=== PATIENT | female | born 1990 | race Caucasian/White ===

== ENCOUNTER 2016-05-20 13:25 | Emergency (ER) | payer MEDICAID ==
[~2016-05-20] VITALS: Ht 152.4 cm; Wt 71.4 kg
[~2016-05-20 13:25] MED LIST: ACET1TAB12 PO; AMOX500T2 PO; LACT1CAP73; MAGNESIUM SUPPLEMENT; [UNRECOGNIZED DRUG - OTHER] PO
--- OUTSIDE RECORDS SUMMARY | 2016-05-20 13:30 | XMS REPORT | Continuity of Care Document ---
Author Author [facility] Organization [facility] Address Unknown Phone Unavailable Care Team Providers Care Payroll Administrator Name Role Phone BERKLEY KATZ DO Primary Care Physician [phone] Insurance Providers Guarantor Cristal Blankenship Address [address] [place] [address] Email DENIED/NO TO PT [place] Payer [facility] Community Plan Policy Number [id number] Subscriber's Name Anthony Blankenshipyla Relationship 18 Self Effective Date 16 Expiration Date 16 Chief Complaint and Reason for Visit Chief Complaint Throat Pain/Injury Reason for Visit [id number] Problems Active Problems Medical Problem Onset Date Status Ovarian cyst rupture Unknown PCOS (polycystic ovarian syndrome) Unknown Strep pharyngitis Unknown Acute UTI (urinary tract infection) Unknown Acute Past Problems Medical Problem Onset Date Abdominal pain Unknown Constipation Unknown Drug-seeking behavior Unknown Medications Current Home Medications Medication Dose Units Route Directions Days Qty Instructions Start Date Acetaminophen With Codeine (Tylenol With Codeine #3 Tablet) 300-30 Tablet 1 Tab Oral Every 4 Hours as needed for Pain Take 1 tablet, by mouth, every 4 hours as needed for Pain 01/12/16 Amoxicillin 500 Mg Tablet 1,000 Mg Oral Daily 10 Days 20 Tablet 02/06 Lactobacillus Combination No.4 (Probiotic) 1 Each Capsule 11/23/15 Magnesium Supplement 11/23/15 Plexis Supplement 1 Tab Oral Daily 03/14/15 Past Home Medications Medication Directions Ordered Status Hydrocodone/Acetaminophen (Hornbeck 5-325 Tablet) 1 Each Tablet, 1-2 Tab Oral Every 6 Hours as needed for Pain 03/14/15 Discontinued B-Pfsoiha-Qst Estr/Ethin Estra (Camrese Lo Tablet) 1 Each Tbdspk.3mo, 1 Tab Oral Daily 03/14/15 Discontinued Ondansetron (Zofran Odt) 4 Mg Tab.rapdis, 4 Mg Oral Q6h/0300,0900,1500,2100 03/14/15 Discontinued Social History Social History Problem Response Recorded Date/Time Onset Date Status Hx Substance Use No 01/12/2016 11:38pm Not Applicable Not Applicable Hx Alcohol Use No 01/12/2016 11:38pm Not Applicable Not Applicable Tobacco Usage none 03/14/2015 12:13pm Not Applicable Not Applicable Hospital Discharge Instructions No hospital discharge instructions. Plan of Care Discharge Date 02/07/16 12:29pm Disposition 01 DISCHARGED HOME, SELF-CARE Condition at Discharge Stable Instructions/Education Provided Strep Throat Prescriptions See Medication Section Referrals BERKLEY KATZ DO Address: [address] [address] Functional Status No functional status results. Allergies, Adverse Reactions, Alerts Allergen Type Severity Reaction Status Last Updated No Known Drug Allergies Allergy Unknown Active 01/12/16 Immunizations Query Response on File Recorded Date/Time Hx Influenza Vaccination Y fall 200703/02/09 9:21am Hx Pneumococcal Vaccination No 03/02/09 9:21am Hx Influenza Vaccination Y fall 200703/02/09 9:21am Influenza Vaccine Hx OCT 2014 02/07/16 12:05pm Vital Signs Acute Vital Signs Vital Response Date/Time Temperature (Fahrenheit) 98.7 deg F (96.8 - 99.1) 02/07/2016 12:07pm Temperature (Calculated Celsius) 37.58557 degrees C (36.0 - 37.3) 02/07/2016 12:07pm Pulse Rate (adult) 79 bpm (60 - 100) 02/07/2016 12:07pm Respiratory Rate 20 breaths/min (10 - 20) 02/07/2016 12:07pm O2 Sat by Pulse Oximetry 96 % (90 - 100) 02/07/2016 12:07pm Blood Pressure 105/68 mm Hg 02/07/2016 12:07pm Height (Feet) 5 feet 01/12/2016 10:10pm Height (Inches) 62.00 inches 02/07/2016 12:07pm Weight (Kilograms) 74.500 kg 02/07/2016 12:07pm Body Mass Index (BMI) 30.0 02/07/2016 12:07pm Results Laboratory Results Test Name Result Units Flags Reference Collection Date/Time Result Date/ Time Comments Urine WBC 5-10 /HPF H 0-5 11/23/2015 10:38pm 11/23/2015 10:57pm Urine RBC 0-1 /HPF 0-3 11/23/2015 10:38pm 11/23/2015 10:57pm Urine Squamous Epithelial Cells 10-20 11/23/2015 10:38pm 2015 10:57pm Urine Bacteria 1+ H NEGATIVE 11/23/2015 10:38pm 11/23/2015 10:57pm Urine Amorphous Phosphates FEW 11/23/2015 10:38pm 11/23/2015 10: 57pm Urine Mucus PRESENT 11/23/2015 10:38pm 11/23/2015 10:57pm Urine Culture Indicated CULT NOT INDICATED 11/23/2015 10:38pm 11/22 10:57pm White Blood Count 9.3 T/MM3 4.5-11.0 01/12/2016 11:26pm 01/12/2016 11: 34pm Red Blood Count 4.68 M/MM3 4.00-5.20 01/12/2016 11:26pm 01/12/2016 11: 34pm Hemoglobin 14.7 GM/DL 12-16 01/12/2016 11:26pm 01/12/2016 11:34pm Hematocrit 41.3 % 36-46 01/12/2016 11:26pm 01/12/2016 11:34pm Mean Corpuscular Volume 88.2 UM3 80-100 01/12/2016 11:26pm 01/12/2016 11:34pm Mean Corpuscular Hemoglobin 31.4 UUG 26-34 01/12/2016 11:26pm 2015 11:34pm Mean Corpuscular Hemoglobin Concent 35.6 GM/DL 31-37 01/12/2016 11:26pm 01/12/2016 11:34pm RDW Standard Deviation 41.1 FL 36.9-50.2 01/12/2016 11:26pm 01/12/2016 11:34pm Platelet Count 244 T/MM3 130-400 01/12/2016 11:26pm 01/12/2016 11:34pm Mean Platelet Volume 9.9 UM3 9.4-12.4 01/12/2016 11:pm 01/12/2016 11: 34pm Neutrophils (%) (Auto) 82.4 % H 33-66 01/12/2016 11:pm 01/12/2016 11: 34pm Lymphocytes (%) (Auto) 10.6 % L 23-45 01/12/2016 11:pm 01/12/2016 11: 34pm Monocytes (%) (Auto) 5.9 % 0-9.0 01/12/2016 11:pm 01/12/2016 11:34pm Eosinophils (%) (Auto) 0.9 % 0-4 01/12/2016 11:pm 01/12/2016 11:34pm Basophils (%) (Auto) 0.1 % 0-2 01/12/2016 11:pm 01/12/2016 11:34pm Immature Granulocyte % (Auto) 0.1 % 0.0-0.5 01/12/2016 11:pm 2015 11:34pm Absolute Neutrophils (auto) 7.7 T/MM3 1.8-7.7 01/12/2016 11:pm 2015 11:34pm Absolute Lymphocytes (auto) 1.0 T/MM3 1-4.8 01/12/2016 11:pm 2015 11:34pm Absolute Monocytes (auto) 0.6 T/MM3 0-0.8 01/12/2016 11:pm 2015 11:34pm Absolute Eosinophils (auto) 0.1 T/MM3 0-0.5 01/12/2016 11:pm 2015 11:34pm Absolute Basophils (auto) 0.0 T/MM3 0-0.2 01/12/2016 11:pm 2015 11:34pm Absolute Immature Granulocyte (auto 0.01 T/MM3 0.00-0.03 01/12/2016 11: pm 01/12/2016 11:34pm Icterus Index < 2 0-7 01/12/2016 11:pm 01/12/2016 11:46pm Chemistry Specimen Hemolysis < 15 0-25 01/12/2016 11:pm 01/12/2016 11:46pm 0-25: Specimen Exhibited No Hemolysis. Turbidity < 20 0-20 01/12/2016 11:26pm 01/12/2016 11:46pm Sodium Level 140 MEQ/L 134-144 01/12/2016 11:26pm 01/12/2016 11:46pm Potassium Level 4.0 MEQ/L 3.6-5 01/12/2016 11:26pm 01/12/2016 11:46pm Chloride Level 105 MEQ/L 98-107 01/12/2016 11:26pm 01/12/2016 11:46pm Carbon Dioxide Level 22 MEQ/L 22-30 01/12/2016 11:26pm 01/12/2016 11: 46pm Anion Gap 13 MEQ/L 5-15 01/12/2016 11:pm 01/12/2016 11:46pm Blood Urea Nitrogen 15.0 MG/DL 7-17 01/12/2016 11:26pm 01/12/2016 11: 46pm Creatinine 0.7 MG/DL 0.7-1.2 01/12/2016 11:pm 01/12/2016 11:46pm BUN/Creatinine Ratio 21 RATIO 6-26 01/12/2016 11:26pm 01/12/2016 11: 46pm Glomerular Filtration Rate Calc 102 01/12/2016 11:26pm 01/12/2016 11:46pm Glucose Level 99 MG/DL 65-110 01/12/2016 11:pm 01/12/2016 11:46pm Calculated Osmolality 270 MOSM/KG 261-280 01/12/2016 11:26pm 2015 11:46pm Calcium Level 8.9 MG/DL 8.4-10.2 01/12/2016 11:26pm 01/12/2016 11:46pm Total Bilirubin 0.60 MG/DL 0.20-1.30 01/12/2016 11:26pm 01/12/2016 11: 46pm Alkaline Phosphatase 63 U/L 38-126 01/12/2016 11:26pm 01/12/2016 11: 46pm Total Protein 7.2 G/DL 6.3-8.2 01/12/2016 11:26pm 01/12/2016 11:46pm Albumin 4.2 G/DL 3.5-5.0 01/12/2016 11:26pm 01/12/2016 11:46pm Globulin 3.0 G/DL 2.4-3.6 01/12/2016 11:26pm 01/12/2016 11:46pm Albumin/Globulin Ratio 1.4 RATIO 1.1-2.2 01/12/2016 11:26pm 01/12/2016 11:46pm Aspartate Amino Transf (AST/SGOT) 21 U/L 14-36 01/12/2016 11:26pm 01/11 11:46pm Alanine Aminotransferase (ALT/SGPT) 34 U/L 9-52 01/12/2016 11:26pm 02/2015 11:46pm Urine Collection Type VOIDED-NOT CC-MIDSTR 01/12/2016 11:26pm 01/11 11:34pm Urine Color YELLOW YELLOW 01/12/2016 11:26pm 01/12/2016 11:34pm Urine Turbidity CLEAR CLEAR 01/12/2016 11:26pm 01/12/2016 11:34pm Urine Specific [place]cam[place] 1.025 1.015-1.025 01/12/2016 11:26pm 2015 11:34pm Urine pH 6.0 5.0-8.0 01/12/2016 11:26pm 01/12/2016 11:34pm Urine Leukocyte Esterase NEGATIVE NEGATIVE 01/12/2016 11:26pm 2015 11:34pm Urine Nitrite NEGATIVE NEGATIVE 01/12/2016 11:26pm 01/12/2016 11: 34pm Urine Protein NEGATIVE NEGATIVE 01/12/2016 11:26pm 01/12/2016 11: 34pm Urine Glucose (UA) NEGATIVE NEGATIVE 01/12/2016 11:26pm 01/12/2016 11 :34pm Urine Ketones TRACE A NEGATIVE 01/12/2016 11:26pm 01/12/2016 11:34pm Urine Urobilinogen 0.2 EU/DL NORMAL 01/12/2016 11:26pm 01/12/2016 11: 34pm Urine Bilirubin NEGATIVE NEGATIVE 01/12/2016 11:26pm 01/12/2016 11: 34pm Urine Blood NEGATIVE NEGATIVE 01/12/2016 11:26pm 01/12/2016 11:34pm Urinalysis Comment MICROSCOPIC NOT IND. 01/12/2016 11:26pm 2015 11:34pm Procedures Procedure Status Date Provider(s) CT ABD & PELV W/CONTRAST Completed 11/23/15 METABOLIC PANEL TOTAL CA Completed 11/23/15 URINALYSIS AUTO W/SCOPE Completed 11/23/15 URINE TEST Completed 11/23/15 COMPLETE CBC W/AUTO DIFF WBC Completed 11/23/15 HYDRATE IV INFUSION ADD-ON Completed 11/23/15 THER/PROPH/DIAG INJ IV PUSH Completed 11/23/15 TX/PRO/DX INJ NEW DRUG ADDON Completed 11/23/15 TX/PRO/DX INJ NEW DRUG ADDON Completed 11/23/15 EMERGENCY DEPT VISIT Completed 11/23/15 948272"INJECTION, KETOROLAC TROMETHAMINE, PER 15 MG" Completed 11/23/15395850"INJECTION, ONDANSETRON HYDROCHLORIDE, PER 1 MG" Completed 11/23/15373428"INFUSION, NORMAL SALINE SOLUTION , 1000 CC" Completed 11/23/15653673"INFUSION, NORMAL SALINE SOLUTION , 250 CC" Completed 11/23/15378508"LOW OSMOLAR CONTRAST MATERIAL, 300-399 MG/ML IODINE C Completed X-RAY EXAM OF ABDOMEN Completed 01/12/16 COMPREHEN METABOLIC PANEL Completed 01/12/16 URINALYSIS AUTO W/O SCOPE Completed 01/12/16 URINE TEST Completed 01/12/16 COMPLETE CBC W/AUTO DIFF WBC Completed 01/12/16 THER/PROPH/DIAG INJ IV PUSH Completed 01/12/16 TX/PRO/DX INJ NEW DRUG ADDON Completed 01/12/16 TX/PRO/DX INJ NEW DRUG ADDON Completed 01/12/16 EMERGENCY DEPT VISIT Completed 01/12/16 386381"INJECTION, PANTOPRAZOLE SODIUM, PER VIAL" Completed 01/12/16 141470"INJECTION, ONDANSETRON HYDROCHLORIDE, PER 1 MG" Completed 01/12/16 722208"INJECTION, FENTANYL CITRATE, 0.1 MG" Completed 01/12/16 Encounters Encounter Location Arrival/Admit Date Discharge/Depart Date Attending Provider Registered Emergency Room [facility] 02/07/16 11:32am EMILIANO COSTELLO APRN Departed Emergency Room [facility] 01/12/16 10:03pm 01/13/16 2: 12am JUNERANDALL DO Departed Emergency Room [facility] 11/23/15 9:34pm 11/24/15 12: 07am BRUNO EDWARDS MD Recent Diagnosis
[2016-05-20 13:34] VITALS: Ht 152.4 cm; Wt 71.4 kg
[2016-05-20] MEDS ORDERED: PLEXUS SUPPLEMENTS PO (13:54)
[2016-05-20 14:04] LABS: BLOOD, URINE NEGATIVE (NEGATIVE); COLOR,URINE YELLOW (YELLOW); LEUKOCYTE ESTERASE ,URINE NEGATIVE (NEGATIVE); NITRITE,URINE NEGATIVE (NEGATIVE); UROBILINOGEN,URINE 0.2 EU/DL (NORMAL)
[2016-05-20 14:14] LABS: BASOPHILS % (AUTO) 0.2 % (0-2); EOSINOPHILS # (AUTO) 0.1 T/MM3 (0-0.5); EOSINOPHILS % (AUTO) 1.6 % (0-4); HCT - HEMATOCRIT 40.2 % (36-46); HGB - HEMOGLOBIN 13.9 GM/DL (12-16); LYMPHOCYTES # (AUTO) 2.4 T/MM3 (1-4.8); LYMPHOCYTES % (AUTO) 29.3 % (23-45); MEAN CORPUSCULAR HGB 30.8 UUG (26-34); MEAN CORPUSCULAR HGB CONC(MCHC 34.6 GM/DL (31-37); MEAN CORPUSCULAR VOLUME 88.9 UM3 (80-100); MEAN PLATELET VOLUME 9.9 UM3 (9.4-12.4); MONOCYTES # (AUTO) 0.5 T/MM3 (0-0.8); MONOCYTES % (AUTO) 6.7 % (0-9.0); NEUTROPHILS % (AUTO) 62.2 % (33-66); RED BLOOD COUNT 4.52 M/MM3 (4.00-5.20)
[2016-05-20] MEDS ORDERED: MORPHINE SULFATE 4 MG SYRINGE IV ONE (14:15)
[2016-05-20] MEDS ORDERED: NORMAL SALINE 1,000 ML IV ONE (14:15)
[2016-05-20] MEDS ORDERED: ONDANSETRON 4mg/2ml INJECTION IV ONE (14:15)
[2016-05-20 14:22] LABS: ALBUMIN 4.3 G/DL (3.5-5.0); ALBUMIN/GLOBULIN RATIO 1.3 RATIO (1.1-2.2); ALKALINE PHOSPHATASE 65 U/L (38-126); ALT (SGPT) 34 U/L (9-52); ANION GAP 16 MEQ/L (5-15); AST (SGOT) 24 U/L (14-36); BUN/CREATININE RATIO 16 RATIO (6-26); CALCIUM 9.5 MG/DL (8.4-10.2); CHLORIDE 106 MEQ/L (98-107); CO2 - CARBON DIOXIDE 24 MEQ/L (22-30); CREATININE 0.8 MG/DL (0.7-1.2); GLOMERULAR FILTRATION RATE 87; GLUCOSE 87 MG/DL (65-110); LIPASE 136 U/L (23-300); POTASSIUM 4.1 MEQ/L (3.6-5); SODIUM 146 MEQ/L (134-144); TOTAL PROTEIN 7.6 G/DL (6.3-8.2)
--- NOTE | 2016-05-20 14:45 | NUR ---
MEDICATIONS IVF INFUSING ORDERED. ZOFRAN 4MG IVP AND MORPHINE 4MG IVP ADMINISTERED
--- NOTE | 2016-05-20 14:56 | NUR ---
DR/PELVIC DR MCKEON AT BEDSIDE TO PERFORM PELVIC EXAM. THIS RN AT BEDSIDE FOR ASSISTANCE.
--- NOTE | 2016-05-20 15:09 | NUR ---
CT PT TO CT VIA RNEY.
--- NOTE | 2016-05-20 15:19 | NUR ---
CT PT RETURNED.
--- NOTE | 2016-05-20 16:05 | NUR ---
ULTRASOUND PT TO ULTRASOUND VIA WC.
[2016-05-20] MEDS ORDERED: HYDROMORPHONE 2mg/ml INJECTION IV ONE (16:15)
[2016-05-20] MEDS ORDERED: ONDA4TAB7 PO (17:02)
[2016-05-20] MEDS ORDERED: HYDR-4246 PO (17:02)
--- NOTE | 2016-05-20 17:03 | ERPDOC ---
Departure Disposition Decision Date: May 20, 2016 Disposition Decision Time: 17:00 Disposition: 01 DISCHARGED HOME, SELF-CARE Impression Impression Impression: Primary Impression: Pelvic pain Severity: Mild Condition: Improved Seen By: Physician only Referrals: BERKLEY KATZ DO (Family) 2 Days Patient Instructions: Pelvic Pain in Women (ED) Problems/Meds/Labs Reviewed?: Yes Medications reviewed and manag: Yes Follow up care ordered?: Yes Mental Status: Alert, Oriented Scripts Hydrocodone/Acetaminophen (Senatobia 5-325 Tablet) 5-325 Tablet 1 TAB PO Q4HR Y for PAIN for 2 Days, #12 TAB 0 Refills Prov: ELE MCKEON DO 05/20/16 Ondansetron (Zofran Odt) 4 Mg Tab.rapdis 4 MG PO Q4HR Y for NAUSEA &/OR VOMITING, #4 TAB 0 Refills Prov: ELE MCKEON DO 05/20/16 HPI - General Medical General Chief Complaint: Abdominal Pain Stated Complaint: L FLANK PAIN, HX OF ENDOMETRIOSIS AND PCOS Time Seen by Provider: 13:41 Source: patient Exam Limitations: no limitations HPI - General Medical Initial Comments 26-year-old female presents to emergency department earlier today with a chief complaint of left lower quadrant abdominal discomfort. Patient noted onset of symptoms earlier today prior to arrival to the emergency department. She denies any trauma or injury. No other complaints or associated symptoms. Pain is sharp. No radiation of pain. Pain is moderate in nature. She does not note anything that makes her pain any better or any worse. Patient has a history of similar symptoms in the past with endometriosis. She was at home when her symptoms began. Symptoms have been persistent in nature since onset. They've had a gradual progression. Patient denies any trauma, travel, poorly prepared food, or recent antibiotic use. She denies any vaginal symptoms or concern for STD. Occurred At: home Onset: Gradual Allergies: Coded Allergies: ketorolac (Verified Adverse Reaction, Unknown, PANIC ATTACK, 05/20/16) Past History Patient Surgical History Exploratory lap surgery 2 Loraine teeth removal Past Medical History Female: endometriosis, miscarriage Neurological: seizures Surgical History General: exploratory laparotomy Family History Family History: Negative Family PMH: FOUND: other Vaccines Hx Influenza Vaccination: Yes (FALL 2007) Hx Pneumococcal Vaccination: No Social History Smoking Status: Former smoker # of Years: 2 Second Hand Exposure: No Substance Use Type: does not use Alcohol Intake: none, occasionally Sexuality: male partner Review of Systems Constitutional Constitutional: DENIES: chills, fever Eyes General: DENIES: erythema, exudate Lids/Accessories: DENIES: erythema, swelling Vision: DENIES: acuity, blurring ENMT Ears: DENIES: drainage, erythema Hearing: DENIES: hearing loss Balance: DENIES: ataxia, falling to one side Sinuses: DENIES: congestion, pain Nose: DENIES: nosebleeds, pain Mouth/Throat: DENIES: painful swallowing, sore throat Teeth: DENIES: pain Jaw: DENIES: pain Cardiovascular Cardiac: DENIES: chest pain, dyspnea on exertion Rhythm/Rate: DENIES: irregular beat, palpitations Vascular: DENIES: pedal edema, unilateral swelling Pulmonary Respiratory: DENIES: cough, dyspnea, pleuritic chest pain, sputum GI Upper Abdomen: DENIES: nausea, pain, vomiting Lower Abdomen: pain, DENIES: diarrhea General: DENIES: dysuria, frequency Musculoskeletal General: DENIES: joint pain, tenderness Integumentary Skin: DENIES: itching, rash Neurological General: DENIES: headache, numbness, weakness Psychiatric Psychiatric: DENIES: emotional instability, suicidal ideation/attempt Endocrine Endocrine: DENIES: polydipsia, polyphagia Hematologic/Lymphatic Hematologic/Lymphatic: DENIES: frequent nosebleeds, lymphadenopathy Allergic/Immunological Allergic/Immunoligical: DENIES: allergic reactions, hives Physical Exam General General Nourishment: well nourished, well developed, appears stated age, no acute distress, adult General Body Habitus: well groomed Vitals and Pain First Documented Vital Signs Date Time Temp Pulse Resp B/P Pulse Ox O2 Delivery O2 Flow Rate FiO2 05/20/16 13:34 98.4 90 14 127/62 98 05/20/16 15:34 Room Air Weight: Kilograms: 71.400 Height (feet): 5 Height (inches): 0 Triage Pain Scale: RN VS reviewed by Provider: Yes Normal Exams: Head: Normocephalic w/o trauma Eyes: Pupils are PERRLA w/ EOMI, No scleral icterus, irritation, or foreign bodies noted ENMT: No facial trauma, nasal exudates, pharyngeal erythema, or exudates are noted Dental: No fractured, loose, or missing teeth noted Neck: Full range of motion, without adenopathy, JVD, bruits or thyromegaly Chest/Resp: Clear all arango, with good airflow, and symmetry bilaterally CV: Regular rate and rhythm, without murmur or gallop, Pulses 2+ all extremities, capillary refill, <2 seconds all ext., no pedal edema noted Abdomen: Bowel sounds positive, soft, non-tender, non-distended, no hepatosplenomegaly, masses or bruits noted Lymphatic: No lymphadenopathy, or lymphedema noted Musculoskeletal: No tenderness, or deformity noted, good range of motion, all extremities Integumentary: No rashes, hives, or bruising noted, hair and nails, without abnormality Neurologic: Patient is alert, and oriented, cranial nerves, motor/sensory/ cerebellar, exams w/o gross deficits, to observation Psychiatric: Patient exhibits, appropriate attention, emotion and affect Abdomen (brief) Comments NO CVAT. (brief) Comments Pelvic Exam - normal external exam. Cervical os is closed. No CMT. No adnexal masses. Positive left adnexal tenderness. No right adnexal tenderness. No abnormal bleeding or abnormal discharge noted. Normal uterus. Differential Diagnoses Considering: Other (renal stone/ovarian cyst/UTI/ovarian torsion) Progress Results/Orders Orders Procedure Category Date Status Time Cbc W/Auto LAB 05/20/16 Complete Diff-Reflex Manual Cmp - Comprehensive LAB 05/20/16 Complete Metabolic Lipase LAB 05/20/16 Complete Ua, Dip Wreflex LAB 05/20/16 Complete Microsc & Pricer Bagger 13:42 LAB 05/20/16 Complete Qualitative, Urine 13:42 Iv Lock (Ed Only) EDM 05/20/16 Transmitted 14:10 Normal Saline (Normal PHA 05/20/16 Complete Saline Iv) 14:15 Ondansetron Inj PHA 05/20/16 Complete (Zofran) 14:15 Morphine Sulfate PHA 05/20/16 Complete (Morphine) 14:15 Ct Abd/Pelvis W/O CT 05/20/16 Taken Contrast 15:01 Microscopic Exam (Wet DEEJAY 05/20/16 Complete Prep-Nancie 15:37 Gc - Chlamydia Pcr LAB 05/20/16 Complete 15:37 Genital Culture DEEJAY 05/20/16 In Process W/Gram Stain 15:37 Hydromorphone PHA 05/20/16 Complete (Dilaudid) 16:15 Us Pelvic (Non-Ob) US 05/20/16 Taken 14:34 Lab Results Laboratory Tests Test 05/20/16 13:57 05/20/16 14:07 05/20/16 15:49 Urine Collection Type Cleancatch-midstream Urine Color Yellow Urine Turbidity Clear Urine pH 5.5 Urine Specific Ranger 1.010 Urine Protein Negative Urine Glucose (UA) Negative Urine Ketones Negative Urine Blood Negative Urine Nitrite Negative Urine Bilirubin Negative Urine Urobilinogen 0.2EU/DL Urine Leukocyte Esterase Negative Urinalysis Comment Microscopic not ind. Urine Test Negative White Blood Count 8.0T/MM3 Red Blood Count 4.52M/MM3 Hemoglobin 13.9GM/DL Hematocrit 40.2% Mean Corpuscular Volume 88.9UM3 Mean Corpuscular Hemoglobin 30.8UUG Mean Corpuscular Hemoglobin Concent 34.6GM/DL RDW Standard Deviation 41.7FL Platelet Count 254T/MM3 Mean Platelet Volume 9.9UM3 Immature Granulocyte % (Auto) 0.0% Neutrophils (%) (Auto) 62.2% Lymphocytes (%) (Auto) 29.3% Monocytes (%) (Auto) 6.7% Eosinophils (%) (Auto) 1.6% Basophils (%) (Auto) 0.2% Absolute Immature Granulocyte (auto 0.00T/MM3 Absolute Neutrophils (auto) 5.0T/MM3 Absolute Lymphocytes (auto) 2.4T/MM3 Absolute Monocytes (auto) 0.5T/MM3 Absolute Eosinophils (auto) 0.1T/MM3 Absolute Basophils (auto) 0.0T/MM3 Turbidity < 20 Sodium Level 146MEQ/L Potassium Level 4.1MEQ/L Chloride Level 106MEQ/L Carbon Dioxide Level 24MEQ/L Anion Gap 16MEQ/L Blood Urea Nitrogen 13.0MG/DL Creatinine 0.8MG/DL Glomerular Filtration Rate Calc 87 BUN/Creatinine Ratio 16RATIO Glucose Level 87MG/DL Calculated Osmolality 280MOSM/KG Calcium Level 9.5MG/DL Total Bilirubin 0.50MG/DL Icterus Index < 2 Aspartate Amino Transf (AST/SGOT) 24U/L Alanine Aminotransferase (ALT/SGPT) 34U/L Alkaline Phosphatase 65U/L Total Protein 7.6G/DL Albumin 4.3G/DL Globulin 3.3G/DL Albumin/Globulin Ratio 1.3RATIO Lipase 136U/L Chemistry Specimen Hemolysis < 15 Chlamydia trachomatis DNA (PCR) Negative N. gonorrhoeae DNA Specimen Source Cervical/vaginal Neisseria gonorrhoeae DNA (PCR) Negative Medications Current ED Medications Sodium Chloride (Normal Saline IV) 1,000 ml @ 999 mls/hr Q1H1M ONCE IV Last administered on 05/20/16 14:39; Start 05/20/16 at 14:15; Stop 05/20/16 at 15:15; Status DC Ondansetron HCl (Zofran) 4 mg O ONCE IV Last administered on 05/20/16 14:40; Start 05/20/16 at 14:15; Stop 05/20/16 at 14:16; Status DC Morphine Sulfate (Morphine) 4 mg O ONCE IV Last administered on 05/20/16 14:42 ; Start 05/20/16 at 14:15; Stop 05/20/16 at 14:16; Status DC Hydromorphone HCl (Dilaudid) 0.5 mg O ONCE IV Last administered on 05/20/16 16 :24; Start 05/20/16 at 16:15; Stop 05/20/16 at 16:16; Status DC Progress Progress Labs / imaging were discussed in detail with the patient and questions are answered. Patient is given IV hydration. Patient is given parental narcotic and antiemetic medications intravenously with improvement of symptoms in the emergency Department. Patient is discharged home in improved condition. Patient is to follow up as instructed. Patient is to return to the emergency Department if her condition worsens or changes in any manner. Patient is in agreement with the current plan of management. She is to follow up as instructed. Prescriptions for Senatobia and Zofran were provided. CT CT : CT: Abd/Pelvis no contrast Interpretation: Normal, Faxed Report Ultrasound US : Ultrasound: Pelvis US Interpretation: Normal, Faxed Report ELE MCKEON DO May 20, 2016 17:03
[2016-05-20 17:40] VITALS: BP 108/63; PULSE 82; RESP 12; TEMP 98.2; O2SAT 98
--- NOTE | 2016-05-20 22:16 | DI ---
Indication: ITS.REASON: Left lower quadrant pain PROCEDURE: US PELVIC (NON-OB): Encounter: Initial Comparison: March 14, 2015 FINDINGS: Transvaginal and transabdominal pelvic imaging was performed. The uterus measures 8.1 x 3.5 x 5.5 cm. The parenchyma is homogeneous without fibroids. The endometrial stripe measures 6 mm in thickness. There is no evidence of focal endometrial mass. Both ovaries are identified and normal in appearance. The right ovary measures 3.9 x 1.4 x 1.6 cm. The left ovary measures 4 x 1.6 x 1.4 cm. There are no abnormal adnexal masses detected. IMPRESSION: Unremarkable pelvic sonogram. There is a preliminary report by [facility]. .
--- NOTE | 2016-05-21 08:16 | DI ---
Indication: ITS.REASON: L abd pain PROCEDURE: CT ABD/PELVIS W/O CONTRAST: Encounter: Initial Comparison: November 23, 2015 Technique: Axial CT images were performed through the abdomen and pelvis without intravenous contrast. Coronal and sagittal two-dimensional reformats. Automated Exposure Control and Iterative Reconstruction dose reducing techniques were utilized. Findings: The lung bases are grossly clear. The unenhanced contours of the liver are unremarkable. The spleen, pancreas and adrenal glands are within normal limits. Kidneys are grossly normal. No abdominal or pelvic lymphadenopathy. Bladder is within normal limits. Uterus and ovaries are normal for age. No free fluid or evidence of bowel obstruction. Small appendicolith in the base of the appendix which is otherwise normal. Impression: No acute disease process seen. No clear etiology for the patient's symptoms. There is a preliminary report by [facility]. .
== END 2016-05-20 17:39 | disposition home or self-care (01) ==
LOC: ED 13:25
DX: R10.2 Pelvic and perineal pain (principal); Z87.42 Personal history of other diseases of the female genital tract
CPT/HCPCS: 36415; 74176; 76856; 80053; 81003; 81025; 83690; 85025; 87070; 87205; 87210; 87220; 87491; 87591; 96361; 96374; 96375; 99284; J1170; J2405; J7030